=== PATIENT | male | born 1980 | race Caucasian/White ===

== ENCOUNTER 2016-08-18 12:32 | Emergency (ER) | payer OTHER ==
[~2016-08-18] VITALS: Ht 185.4 cm; Wt 99.1 kg
[2016-08-18] MEDS ORDERED: BENAZEPRIL HCL10 MG PO (13:08)
[2016-08-18] MEDS ORDERED: HUMALOG100 UNIT/1 SC (13:08)
[2016-08-18] MEDS ORDERED: ATORVASTATIN CA20 MG PO (13:08)
[2016-08-18 13:35] LABS: HEMATOCRIT 44.7 % (38.0-50.0); MCHC 35.1 G/DL (30.0-36.0); MCV 88.2 FL (86-99); MEAN PLAT.VOLUME 10.7 uM^3 (9.0-12.4); PLATELET COUNT 213 K/uL (156-360); RBC DIS.WIDTH-CV 11.8 % (11.8-14.6); RBC DIS.WIDTH-SD 37.3 % (39-53); RED BLOOD COUNT 5.07 M/uL (4.00-5.50); WHITE BLOOD COUNT 27.1 K/uL (4.1-10.2)
[2016-08-18 13:44] LABS: CHLORIDE 103 mEq/L (99-109); POTASSIUM 4.4 mEq/L (3.7-5.4); SODIUM 137 mEq/L (136-147)
[2016-08-18 13:46] LABS: GLUCOSE 199 mg/dL (70-99)
[2016-08-18 13:47] LABS: ANION GAP 8 MEQ/L (2-14)
[2016-08-18 13:50] LABS: GFR ESTIMATE (CALCULATED) > 59 mL/min/; UREA NITROGEN (BUN) 15 mg/dL (9-23)
[2016-08-18 13:57] LABS: TROP-I INTERPRETATION NEGATIVE; TROPONIN-I 0.03 ng/mL (0.0-0.30)
[2016-08-18] MEDS ORDERED: INSULIN PUMP SCCONT (14:52)
[2016-08-18 15:25] LABS: INFLUENZA A VIRAL ANTIGEN NEGATIVE; INFLUENZA B VIRAL ANTIGEN NEGATIVE
[2016-08-18 16:15] LABS: ADD MIUA? NO; BILIRUBIN NEGATIVE; BLOOD NEGATIVE; COLOR YELLOW ((YELLOW)); GLUCOSE (STRIP) 50; KETONES NEGATIVE; LEUKOCYTES NEGATIVE; NITRITE NEGATIVE; PROTEIN (STRIP) NEGATIVE; SPECIFIC GRAVITY 1.012 (1.000-1.030); UROBILINOGEN 0.2 MG/DL (0.2-1.0)
[2016-08-18] MEDS ORDERED: LEVAQUIN750 MG PO (16:26)
[2016-08-18] MEDS ORDERED: VENTOLIN HFA18 GM IH (16:27)
[2016-08-18 17:50] VITALS: BP 99/68
== END 2016-08-18 17:51 | disposition home or self-care (01) ==
LOC: EME 12:32 → EXP 12:32
PROVIDERS: Nurse Practitioner Family
DX: J18.9 Pneumonia, unspecified organism (principal); R07.9 Chest pain, unspecified; D72.829 Elevated white blood cell count, unspecified; E10.9 Type 1 diabetes mellitus without complications; Z79.4 Long term (current) use of insulin; Z87.891 Personal history of nicotine dependence
CPT/HCPCS: 71020; 71275; 80048; 81003; 83605; 84484; 85027; 87040; 87502; 93005; 94640; 99281; 99285; J0456; J0696; J7030; J7050

== ENCOUNTER 2016-08-28 13:38 | Inpatient (IN) | payer OTHER ==
[~2016-08-28] VITALS: Ht 185.4 cm; Wt 99.9 kg
[~2016-08-28 13:38] MED LIST: ATORVASTATIN CA20 MG PO; BENAZEPRIL HCL10 MG PO; HUMALOG100 UNIT/1 SC; INSULIN PUMP SCCONT; LEVAQUIN750 MG PO; VENTOLIN HFA18 GM IH
[2016-08-28 14:10] LABS: POINT-OF-CARE METER ID UU13113800
[2016-08-28 14:13] LABS: HEMATOCRIT 44.7 % (38.0-50.0); MCH 30.7 PG (29.0-34.0); MCHC 35.1 G/DL (30.0-36.0); MCV 87.5 FL (86-99); PLATELET COUNT 247 K/uL (156-360); RBC DIS.WIDTH-CV 11.6 % (11.8-14.6); RBC DIS.WIDTH-SD 37.2 % (39-53); RED BLOOD COUNT 5.11 M/uL (4.00-5.50)
[2016-08-28 14:21] LABS: CHLORIDE 105 mEq/L (99-109); POTASSIUM 4.3 mEq/L (3.7-5.4); SODIUM 137 mEq/L (136-147)
[2016-08-28 14:23] LABS: GLUCOSE 119 mg/dL (70-99)
[2016-08-28 14:25] LABS: ANION GAP 10 MEQ/L (2-14)
[2016-08-28 14:27] LABS: GFR ESTIMATE (CALCULATED) > 59 mL/min/
[2016-08-28 14:28] LABS: UREA NITROGEN (BUN) 13 mg/dL (9-23)
[2016-08-28 14:39] LABS: WHITE BLOOD COUNT 29.2 K/uL (4.1-10.2)
[2016-08-28 16:05] LABS: D-DIMER ELISA < 0.15 mg/L FEU (< 0.57)
[2016-08-28 16:06] LABS: TROP-I INTERPRETATION NEGATIVE; TROPONIN-I < 0.01 ng/mL (0.0-0.30)
[2016-08-28 16:37] LABS: ADD MIUA? NO; BILIRUBIN NEGATIVE; BLOOD NEGATIVE; COLOR YELLOW ((YELLOW)); GLUCOSE (STRIP) NEGATIVE; KETONES NEGATIVE; LEUKOCYTES NEGATIVE; NITRITE NEGATIVE; PROTEIN (STRIP) NEGATIVE; SPECIFIC GRAVITY 1.012 (1.000-1.030); UCUL ADDED? NO; UROBILINOGEN 0.2 MG/DL (0.2-1.0)
[2016-08-28 16:48] LABS: INFLUENZA A VIRAL ANTIGEN NEGATIVE; INFLUENZA B VIRAL ANTIGEN NEGATIVE
[2016-08-28 17:14] LABS: TOTAL BILIRUBIN 0.6 mg/dL (0.0-1.0)
[2016-08-28 17:15] LABS: ALKALINE PHOSPHATASE 55 IU/L (3-129)
[2016-08-28 17:18] LABS: DIRECT BILIRUBIN 0.3 mg/dL (0.0-0.3)
[2016-08-28 17:19] LABS: LIPASE 4 U/L (1.0-51.0)
[2016-08-28] MEDS ORDERED: LEVAQUIN750 MG PO (18:45)
[2016-08-28] MEDS ORDERED: CLARITIN,ALAVAR10 MG PO (18:54)
[2016-08-28 20:17] LABS: BASOPHIL COUNT 0.1 K/uL (0-0.1); EOSINOPHIL (%) 0 % (0-5); IMMATURE GRANULOCYTE (%) 0.5 % (0.0-0.7); IMMATURE GRANULOCYTE COUNT 0.1 K/uL; INSTRUMENT ABS NEUTROPHIL CT 21.5 K/uL; MCHC 35.1 G/DL (30.0-36.0); MCV 88.3 FL (86-99); MEAN PLAT.VOLUME 9.9 uM^3 (9.0-12.4); MONOCYTE (%) 2.5 % (3-12); MONOCYTE COUNT 0.6 K/uL (0-0.8); NEUTROPHIL (%) 88.6 % (45-76); NEUTROPHIL COUNT 21.5 K/uL (1.8-6.4); RBC DIS.WIDTH-CV 11.9 % (11.8-14.6); RBC DIS.WIDTH-SD 37.9 % (39-53); RED BLOOD COUNT 4.19 M/uL (4.00-5.50); WHITE BLOOD COUNT 24.3 K/uL (4.1-10.2)
[2016-08-28 21:02] LABS: ABS NEUTROPHIL COUNT 22.1; ANISOCYTOSIS 1+; ATYPICAL LYMPHOCYTE 0.4 %; BAND NEUTROPHILS 8.3 % (0-8.0); EOSINOPHIL ABS CT 0; HEMATOLOGY COMMENT 1 UNABLE TO REPORT-PLT CLUMPED; LYMPHOCYTES 6.1 % (15.0-45.0); SEG.NEUTROPHILS 82.6 % (46.0-76.0)
[2016-08-28 21:03] LABS: PLATELET CLUMPS PRESENT - PLATELET C
[2016-08-28 22:12] VITALS: BP 112/66
[2016-08-29 04:10] VITALS: BP 100/56
[2016-08-29 06:45] VITALS: BP 107/55
[2016-08-29 07:07] LABS: EOSINOPHIL (%) 0.8 % (0-5); EOSINOPHIL COUNT 0.1 K/uL (0-0.3); HEMATOCRIT 37.7 % (38.0-50.0); IMMATURE GRANULOCYTE (%) 0.3 % (0.0-0.7); INSTRUMENT ABS NEUTROPHIL CT 9.1 K/uL; MCH 30.7 PG (29.0-34.0); MCV 90.4 FL (86-99); MEAN PLAT.VOLUME 10.3 uM^3 (9.0-12.4); MONOCYTE (%) 3.8 % (3-12); MONOCYTE COUNT 0.4 K/uL (0-0.8); NEUTROPHIL COUNT 9.1 K/uL (1.8-6.4); PLATELET COUNT 188 K/uL (156-360); RBC DIS.WIDTH-CV 12.1 % (11.8-14.6); RBC DIS.WIDTH-SD 39.8 % (39-53); RED BLOOD COUNT 4.17 M/uL (4.00-5.50)
[2016-08-29 07:12] LABS: WHITE BLOOD COUNT 11.6 K/uL (4.1-10.2)
[2016-08-29 07:29] LABS: ALKALINE PHOSPHATASE 42 IU/L (3-129); ANION GAP 7 MEQ/L (2-14); CHLORIDE 110 MEQ/L (99-109); GFR ESTIMATE (CALCULATED) > 59 mL/min/; GLUCOSE 99 mg/dL (70-99); POTASSIUM 3.6 MEQ/L (3.7-5.4); SAMPLE HEMOLYSIS CHECK 0; SAMPLE ICTERIC CHECK 0; SAMPLE LIPEMIA CHECK 0; SODIUM 140 MEQ/L (136-147); TOTAL BILIRUBIN 0.6 MG/DL (0.0-1.0); UREA NITROGEN (BUN) 9 mg/dL (9-23)
[2016-08-29 12:15] VITALS: BP 128/61
[2016-08-29 16:21] VITALS: BP 117/66
[2016-08-29 19:15] VITALS: BP 121/88
[2016-08-29 21:52] LABS: POINT-OF-CARE METER ID UU14162508
[2016-08-29 23:41] VITALS: BP 137/70
[2016-08-30 03:38] VITALS: BP 117/71
[2016-08-30 06:32] LABS: POINT-OF-CARE METER ID UU14162508
[2016-08-30 06:55] LABS: POINT-OF-CARE METER ID UU14162508
[2016-08-30 07:42] VITALS: BP 125/72
[2016-08-30 08:23] LABS: EOSINOPHIL (%) 2.6 % (0-5); EOSINOPHIL COUNT 0.2 K/uL (0-0.3); HEMATOCRIT 40.1 % (38.0-50.0); IMMATURE GRANULOCYTE (%) 0.4 % (0.0-0.7); INSTRUMENT ABS NEUTROPHIL CT 5.4 K/uL; LYMPHOCYTE COUNT 1.9 K/uL (1.0-2.8); MCH 30.3 PG (29.0-34.0); MCHC 33.4 G/DL (30.0-36.0); MCV 90.7 FL (86-99); MEAN PLAT.VOLUME 10.4 uM^3 (9.0-12.4); MONOCYTE (%) 6.8 % (3-12); MONOCYTE COUNT 0.6 K/uL (0-0.8); NEUTROPHIL (%) 66.7 % (45-76); NEUTROPHIL COUNT 5.4 K/uL (1.8-6.4); PLATELET COUNT 195 K/uL (156-360); RBC DIS.WIDTH-SD 39.8 % (39-53); RED BLOOD COUNT 4.42 M/uL (4.00-5.50)
[2016-08-30 08:27] LABS: WHITE BLOOD COUNT 8.1 K/uL (4.1-10.2)
[2016-08-30 09:10] LABS: CHLORIDE 108 mEq/L (99-109); SODIUM 139 mEq/L (136-147)
[2016-08-30 09:11] LABS: MAGNESIUM 1.9 mg/dL (1.3-2.7); POTASSIUM 4.5 mEq/L (3.7-5.4)
[2016-08-30 09:13] LABS: GLUCOSE 160 mg/dL (70-99)
[2016-08-30 09:14] LABS: ANION GAP 10 MEQ/L (2-14)
[2016-08-30 09:16] LABS: GFR ESTIMATE (CALCULATED) > 59 mL/min/
[2016-08-30 09:17] LABS: UREA NITROGEN (BUN) 8 mg/dL (9-23)
[2016-08-30 09:19] LABS: CREATINE KINASE 42 IU/L (1-294); TOTAL CK 42 IU/L (1-294)
[2016-08-30 09:25] LABS: CK-MB 0.4 ng/mL (0.0-4.9)
[2016-08-30 15:35] VITALS: BP 138/77
[2016-08-30 20:24] VITALS: BP 144/82
[2016-08-31] VITALS: BP 132/92
[2016-08-31 04:00] VITALS: BP 105/62
[2016-08-31 08:20] VITALS: BP 119/75
== END 2016-08-31 11:42 | disposition home or self-care (01) | DRG 206 ==
LOC: EME 13:38 → 2EASTP 20:50 → EDOF 20:50 → 2EASTP 21:53
PROVIDERS: Internal Medicine; Physician Assistant Medical
DX: R09.02 Hypoxemia (principal); R65.10 Systemic inflammatory response syndrome (SIRS) of non-infectious origin without acute organ dysfunction; E10.40 Type 1 diabetes mellitus with diabetic neuropathy, unspecified; J98.11 Atelectasis; R00.0 Tachycardia, unspecified; R01.1 Cardiac murmur, unspecified; R05 Cough; D72.829 Elevated white blood cell count, unspecified; Z79.4 Long term (current) use of insulin; Z87.891 Personal history of nicotine dependence; Z96.41 Presence of insulin pump (external) (internal)
CPT/HCPCS: 71020; 71250; 80048; 80053; 80076; 80202; 81003; 82550; 82553; 82948; 83605; 83690; 83735; 84484; 85025; 85027; 85379; 87040; 87070; 87205; 87502; 87651 90; 93005; 93306; 94640 76; 99202; 99281; 99285; J1580; J1650; J2543; J3370; J7030; J7120